=== PATIENT | female | born 2000 | race Two or more races ===

== ENCOUNTER → 2024-06-05 | Outpatient (BNVA) | payer BC, MEDICAID, SELFPAY | END | disposition home or self-care (01) | PROVIDERS: PCP Nurse Practitioner Family; Referring Provider Nurse Practitioner Family; Visit Provider Nurse Practitioner Family | DX: K21.9 Gastro-esophageal reflux disease without esophagitis (principal); Z86.19 Personal history of other infectious and parasitic diseases; L70.0 Acne vulgaris | CPT/HCPCS: 99213 ==

== ENCOUNTER → 2024-07-19 | Outpatient (BNVA) | payer BC, MEDICAID, SELFPAY | END | disposition home or self-care (01) | PROVIDERS: PCP Nurse Practitioner Family; Referring Provider Nurse Practitioner Family; Visit Provider Nurse Practitioner Family | DX: B00.1 Herpesviral vesicular dermatitis (principal) | CPT/HCPCS: 99213 ==

== ENCOUNTER → 2024-08-16 | Outpatient (BNVA) | payer BC, MEDICAID, SELFPAY | END | disposition home or self-care (01) | PROVIDERS: PCP Nurse Practitioner Family; Referring Provider Nurse Practitioner Family; Visit Provider Nurse Practitioner Family | DX: M54.9 Dorsalgia, unspecified (principal); Z11.3 Encounter for screening for infections with a predominantly sexual mode of transmission | CPT/HCPCS: 99214 ==

== ENCOUNTER → 2024-08-20 | Outpatient (CLI) | payer BC, MEDICAID, SELFPAY ==
--- NOTE | 2024-08-20 15:51 | XR_ITS ---
Examination: Thoracic spine 3 views TECHNIQUE: AP lateral coned lateral upper dorsal spine 3 views Exam date and time: August 20, 2024 1628 hours Comparison October 31, 2015 INDICATIONS: Upper back pain beginning 5 years ago. FINDINGS: Adequate bone density Lower thoracic levoscoliosis 30 degrees No thoracic fracture No thoracic disc narrowing IMPRESSION: No thoracic fracture or significant arthritic change
--- NOTE | 2024-08-20 15:51 | XR_ITS ---
Examination: Lumbar spine 3 views Technique one AP lateral coned lateral lower lumbar spine 3 views Exam date and time: August 20, 2024 1631 hours INDICATIONS: Low back pain beginning 5 years ago FINDINGS: Adequate alignment lumbar vertebral bodies No lumbar fracture Minimal disc narrowing L5-S1 No spondylolisthesis IMPRESSION: Minimal disc narrowing L5-S1
== END | disposition home or self-care (01) ==
PROVIDERS: PCP Nurse Practitioner Family; Referring Provider Nurse Practitioner Family; Visit Provider Nurse Practitioner Family
DX: M48.07 Spinal stenosis, lumbosacral region (principal); M54.6 Pain in thoracic spine
CPT/HCPCS: 72072; 72100

== ENCOUNTER → 2024-08-27 | Outpatient (CLI) | payer BC, MEDICAID, SELFPAY ==
--- NOTE | 2024-08-27 16:05 | XR_ITS ---
Examination: Scoliosis survey 2, views. Technique: AP standing thoracic, AP standing lumbar spine, two views. Exam date and time: August 27, 2024 1611 hrs. Indications: Back pain 3 years. Findings: Mild thoracic lumbar levoscoliosis 6 degrees Intact pedicles No segmentation anomalies Minimal lumbar spondylosis Impression: Thoracic lumbar levoscoliosis 6 degrees
== END | disposition home or self-care (01) ==
PROVIDERS: PCP Nurse Practitioner Family; Referring Provider Nurse Practitioner Family; Visit Provider Nurse Practitioner Family
DX: M41.86 Other forms of scoliosis, lumbar region (principal)
CPT/HCPCS: 72082

== ENCOUNTER → 2024-08-27 | Outpatient (BNVA) | payer BC, MEDICAID, SELFPAY | END | disposition home or self-care (01) | PROVIDERS: PCP Nurse Practitioner Family; Referring Provider Nurse Practitioner Family; Visit Provider Nurse Practitioner Family | DX: Z71.2 Person consulting for explanation of examination or test findings (principal); M41.9 Scoliosis, unspecified; Z11.3 Encounter for screening for infections with a predominantly sexual mode of transmission; G89.29 Other chronic pain; M54.9 Dorsalgia, unspecified | CPT/HCPCS: 99215 ==

== ENCOUNTER → 2024-09-14 | Outpatient (BNVA) | payer BC, MEDICAID, SELFPAY | END | disposition home or self-care (01) | PROVIDERS: PCP Nurse Practitioner Family; Referring Provider Nurse Practitioner Family; Visit Provider Nurse Practitioner Family | DX: M41.9 Scoliosis, unspecified (principal); M41.85 Other forms of scoliosis, thoracolumbar region; Z71.2 Person consulting for explanation of examination or test findings; E55.9 Vitamin D deficiency, unspecified | CPT/HCPCS: 99212; G0463 ==

== ENCOUNTER → 2024-12-04 | Outpatient (BNVA) | payer MEDICAID, SELFPAY | END | disposition home or self-care (01) | PROVIDERS: PCP Nurse Practitioner Family; Referring Provider Nurse Practitioner Family; Visit Provider Nurse Practitioner Family | DX: Z71.2 Person consulting for explanation of examination or test findings (principal); R10.9 Unspecified abdominal pain; K21.9 Gastro-esophageal reflux disease without esophagitis | CPT/HCPCS: 99212; G0463 ==

== ENCOUNTER → 2025-01-25 | Outpatient (BNVA) | payer MEDICAID, SELFPAY | END | disposition home or self-care (01) | PROVIDERS: PCP Nurse Practitioner Family; Referring Provider Nurse Practitioner Family; Visit Provider Nurse Practitioner Family | DX: N76.0 Acute vaginitis (principal) | CPT/HCPCS: 99212; G0463 ==

== ENCOUNTER → 2025-03-20 | Outpatient (BNVA) | payer MEDICAID, SELFPAY | END | disposition home or self-care (01) | PROVIDERS: PCP Nurse Practitioner Family; Referring Provider Nurse Practitioner Family; Visit Provider Nurse Practitioner Family | DX: L70.0 Acne vulgaris (principal) | CPT/HCPCS: 99214 ==

== ENCOUNTER → 2025-03-28 | Outpatient (BNVA) | payer MEDICAID, SELFPAY | END | disposition home or self-care (01) | PROVIDERS: PCP Nurse Practitioner Family; Referring Provider Nurse Practitioner Family; Visit Provider Nurse Practitioner Family | DX: Z00.01 Encounter for general adult medical examination with abnormal findings (principal); E55.9 Vitamin D deficiency, unspecified; Z28.21 Immunization not carried out because of patient refusal; R10.9 Unspecified abdominal pain; M41.85 Other forms of scoliosis, thoracolumbar region; Z71.85 Encounter for immunization safety counseling; E66.3 Overweight; Z68.26 Body mass index [BMI] 26.0-26.9, adult | CPT/HCPCS: 99173; 99215 ==

== ENCOUNTER → 2025-04-11 | Outpatient (BNVA) | payer MEDICAID, SELFPAY | END | disposition home or self-care (01) | PROVIDERS: PCP Nurse Practitioner Family; Referring Provider Nurse Practitioner Family; Visit Provider Nurse Practitioner Family | DX: Z12.4 Encounter for screening for malignant neoplasm of cervix (principal); N76.0 Acute vaginitis; Z71.2 Person consulting for explanation of examination or test findings; E55.9 Vitamin D deficiency, unspecified | CPT/HCPCS: 81001; 99215; Q0091 ==

== ENCOUNTER 2025-04-17 14:00 | Outpatient (RCR) | payer MEDICAID, SELFPAY ==
--- NOTE | 2025-04-03 15:20 | PT.OIERPT ---
PT OP Initial Eval Patient Information Outpatient Physical Therapy Treatment Date: 04/03/25 Visit Reasons: Back pain Medical Diagnosis: m41.9 m54.9 Start of Care: 04/03/25 Date of Onset: 10 yrs ago Smoking Status Smoking Status: Never smoker Initial Assessment Subjective: Pt is 24 yr old female who c/o back pain x10 yrs. Increased pain with bending, lifting and prolonged standing. PMH: none reported Imaging: Xrays in EMR Thoracic lumbar levoscoliosis 6 degrees ? Pt goal: to manage the pain Treatment Plan Certification Dates: 04/03/25 Procedure Charges OP PT Eval Mod Complex 30 minutes: Yes
--- NOTE | 2025-04-03 18:09 | PTNOTE_ITS ---
PT OP Initial Eval Patient Information Outpatient Physical Therapy Treatment Date: 04/03/25 Visit Reasons: Back pain Medical Diagnosis: m41.9 m54.9 Treatment Dx #1: back pain Start of Care: 04/03/25 Date of Onset: 10 yrs ago Smoking Status Smoking Status: Never smoker Initial Assessment Subjective: Pt is 24 yr old female who c/o back pain x10 yrs. Increased pain with bending, lifting and prolonged standing. PMH: none reported Imaging: Xrays in EMR Thoracic lumbar levoscoliosis 6 degrees ? Pt goal: to manage the pain Objective: Thoracic AROM: Extension: full with pain Flexion: full rotation: full with pain TTP: moderate of T/S paraspinals Assessment: Pt presents with TTP of thoracic paraspinals and pain with extension and rotation which may be related to scoliosis. An Xray report from 08/20/24 says she has a 30 deg curvature but the Xray report from 08/27/24 says 6 degrees. She requires skilled therapy and has fair rehab potential to meet goals. Short Term and Occupational Medicine Physician Goals 1. Ind with HEP 2. Decreased TTP of T/S paraspinals from mod to min 3. Improved T/S ROM without pain to full and painfree into extension and rotation. Treatment Plan ?1. Manual therapy ? 2. Therex ? 3. Modalities as indicated, moist heat, ice, estim, mechanical traction Frequency and Duration: 2x a week for 12 Rx sessions plus the evaluation Certification Dates: 04/03/25 to 07/02/24 Procedure Charges OP PT Eval Mod Complex 30 minutes: Yes
--- NOTE | 2025-04-17 14:47 | PT.ODAYNRPT ---
PT Outpatient Daily Note OP Daily Note Outpatient Physical Therapy Treatment Date: 04/17/25 Visit Reasons: Back pain Subjective: Pt reports she stays active, sores out and does some stretching before and post workouts. Objective: Please see flow sheet for ther ex list. Assessment: Interventions completed with good tolerance. Plan: Continue with pOC. Length of Time (minutes) of Treatment: 30 Minutes Procedure Charges Therapeutic Exercise 30 minutes: Yes
== END 2025-04-19 23:59 | disposition home or self-care (01) ==
LOC: CPTX 14:00
PROVIDERS: PCP Nurse Practitioner Family; Referring Provider Nurse Practitioner Family; Visit Provider Nurse Practitioner Family
DX: M54.6 Pain in thoracic spine (principal); M41.84 Other forms of scoliosis, thoracic region; M41.86 Other forms of scoliosis, lumbar region
CPT/HCPCS: 97110; 97162